=== PATIENT | female | born 1955 | race Caucasian/White ===

== ENCOUNTER 2017-12-29 06:48 | Day surgery (SDC) | payer MEDICAID ==
[~2017-12-29 06:48] MED LIST: KETOROLAC TROMETHAMINE 0.45% 4 DROP/0.4 ML DROPERETTE OS PRN
[2017-12-29] MEDS ORDERED: TOBRAMYCIN SULFATE/DEXAMETH OPH OINTMENT 3.5 GM ONE (07:06)
[2017-12-29] MEDS ORDERED: LIDOCAINE 1% INJ-PF (10 MG/ML) 30 ML SDV ONE (07:06)
[2017-12-29] MEDS ORDERED: EPINEPHRINE INJ/PF 1 MG/1 ML AMPULE ONE (07:06)
[2017-12-29] MEDS ORDERED: CHONDR SU A NA/HYALUR INTRAOC KIT (SURGICARE) ONE (07:07)
[2017-12-29] MEDS: TETRACAINE HCL 0.5% OPH SOLN 0.6 ML DROPERETTE OS PRN ×3 (07:08→07:54)
[2017-12-29] MEDS: CYCLOPENTOLATE 0.2%/PHENYLEPHRINE 1% OPH SOLN 2 ML OS PRN ×3 (07:09→07:35)
[2017-12-29] MEDS: TROPICAMIDE 1% OPH SOLN 3 ML OS PRN ×3 (07:09→07:35)
[2017-12-29] MEDS: BESIFLOXACIN HCL 0.6% OPH SUSP 5 ML BOTTLE OS PRN ×4 (07:10→08:19)
[2017-12-29] MEDS ORDERED: MIDAZOLAM 2 MG/2 ML INJ ONE (07:31)
[2017-12-29] MEDS ORDERED: FENTANYL CITRATE INJ/PF 100 MCG/2 ML AMPUL ONE (07:31)
== END 2017-12-29 09:00 | disposition home or self-care (01) ==
LOC: SC 06:48
PROVIDERS: ATTEND Ophthalmology
PROC: 08RK3JZ Replacement of Left Lens with Synthetic Substitute, Percutaneous Approach (ICD-10-PCS; principal; 2017-12-29 07:45)
DX: H25.12 Age-related nuclear cataract, left eye (principal); F17.210 Nicotine dependence, cigarettes, uncomplicated; M19.90 Unspecified osteoarthritis, unspecified site; J44.9 Chronic obstructive pulmonary disease, unspecified; I10 Essential (primary) hypertension; E78.00 Pure hypercholesterolemia, unspecified; D64.9 Anemia, unspecified; K21.9 Gastro-esophageal reflux disease without esophagitis; I49.9 Cardiac arrhythmia, unspecified; E66.9 Obesity, unspecified; G40.909 Epilepsy, unspecified, not intractable, without status epilepticus; Z79.82 Long term (current) use of aspirin; Z79.899 Other long term (current) drug therapy; Z79.51 Long term (current) use of inhaled steroids; Z88.5 Allergy status to narcotic agent; Z88.1 Allergy status to other antibiotic agents; Z68.41 Body mass index [BMI] 40.0-44.9, adult
CPT/HCPCS: 66984; V2630; J2250; J3490 ×5; J0171; J3010; 142

== ENCOUNTER 2018-01-12 07:52 | Day surgery (SDC) | payer MEDICAID ==
[2018-01-12] MEDS ORDERED: KETOROLAC TROMETHAMINE 0.45% 4 DROP/0.4 ML DROPERETTE OD PRN (08:09)
[2018-01-12] MEDS ORDERED: EPINEPHRINE INJ/PF 1 MG/1 ML AMPULE ONE (08:27)
[2018-01-12] MEDS ORDERED: CHONDR SU A NA/HYALUR INTRAOC KIT (SURGICARE) ONE (08:28)
[2018-01-12] MEDS ORDERED: TOBRAMYCIN SULFATE/DEXAMETH OPH OINTMENT 3.5 GM ONE (08:28)
[2018-01-12] MEDS ORDERED: LIDOCAINE 1% INJ-PF (10 MG/ML) 30 ML SDV ONE (08:28)
[2018-01-12] MEDS: TETRACAINE HCL 0.5% OPH SOLN 0.6 ML DROPERETTE OD PRN ×3 (08:46→09:29)
[2018-01-12] MEDS: CYCLOPENTOLATE 0.2%/PHENYLEPHRINE 1% OPH SOLN 2 ML OD PRN ×3 (08:47→09:15)
[2018-01-12] MEDS: TROPICAMIDE 1% OPH SOLN 3 ML OD PRN ×3 (08:47→09:15)
[2018-01-12] MEDS: BESIFLOXACIN HCL 0.6% OPH SUSP 5 ML BOTTLE OD PRN ×3 (08:48→09:52)
[2018-01-12] MEDS ORDERED: MIDAZOLAM 2 MG/2 ML INJ ONE (09:17)
[2018-01-12] MEDS ORDERED: ONDANSETRON HCL INJ/PF 4 MG/2 ML SDV ONE (09:18)
[2018-01-12] MEDS ORDERED: FENTANYL CITRATE INJ/PF 100 MCG/2 ML AMPUL ONE (09:18)
[2018-01-13] MEDS ORDERED: BESIFLOXACIN HCL 0.6% OPH SUSP 5 ML BOTTLE OD PRN (05:00)
[2018-01-13] MEDS ORDERED: CYCLOPENTOLATE 0.2%/PHENYLEPHRINE 1% OPH SOLN 2 ML OD PRN (05:00)
[2018-01-13] MEDS ORDERED: TROPICAMIDE 1% OPH SOLN 3 ML OD PRN (05:00)
[2018-01-13] MEDS ORDERED: KETOROLAC TROMETHAMINE 0.45% 4 DROP/0.4 ML DROPERETTE OD PRN (05:00)
[2018-01-13] MEDS ORDERED: TETRACAINE HCL 0.5% OPH SOLN 0.6 ML DROPERETTE OD PRN (05:00)
== END 2018-01-12 10:28 | disposition home or self-care (01) ==
LOC: SC 07:52
PROVIDERS: ATTEND Ophthalmology
DX: H25.11 Age-related nuclear cataract, right eye (principal); Z98.42 Cataract extraction status, left eye; I10 Essential (primary) hypertension; E78.00 Pure hypercholesterolemia, unspecified; J44.9 Chronic obstructive pulmonary disease, unspecified; M19.90 Unspecified osteoarthritis, unspecified site; K21.9 Gastro-esophageal reflux disease without esophagitis; Z79.51 Long term (current) use of inhaled steroids; I49.9 Cardiac arrhythmia, unspecified; Z79.82 Long term (current) use of aspirin
CPT/HCPCS: 66984; V2630; J2250; J3490 ×5; J0171; J2405; 142; J3010

== ENCOUNTER → 2020-02-23 | Outpatient (CLI) | payer MEDICARE, MEDICAID ==
--- NOTE | 2020-02-23 08:43 | RADIOLOGY REPORT (SQ) ---
EXAM DESCRIPTION: PELVIS AP IMAGES COMPLETED DATE/TIME: 02/23/2020 8:18 am REASON FOR STUDY: SACROILIITIS, NOT ELSEWHERE CLASSIFIED M46.1 SACROILIITIS, NOT ELSEWHERE CLASSIFI ED COMPARISON: None. NUMBER OF VIEWS: One view TECHNIQUE: AP Pelvis LIMITATIONS: None. FINDINGS: MINERALIZATION: Normal. HIPS: No acute fracture or dislocation. Marked joint space narrowing in both hips with joint space l oss and superior migration, irregular contour of the femoral heads, sclerosis, and subchondral cysts. PELVIS AND SACRUM: No acute fracture or dislocation. No worrisome bone lesions. PUBIS AND ISCHIUM: No acute fracture. LOWER LUMBAR SPINE: No significant findings as visualized. SOFT TISSUES: No findings. OTHER: No other significant finding. IMPRESSION: SEVERE DEGENERATIVE CHANGES IN BOTH HIPS. COMMENT: Pelvic fractures are often occult on plain radiographs. If strong clinical suspicion for f racture, recommend CT or MR. TECHNICAL DOCUMENTATION: JOB ID: [id number] 2010 [employer]- All Rights Reserved Reading location - IP/workstation name: [email or web address]
--- NOTE | 2020-02-23 09:40 | RADIOLOGY REPORT (SQ) ---
EXAM DESCRIPTION: KNEE LEFT 2 VIEWS IMAGES COMPLETED DATE/TIME: 02/23/2020 8:49 am REASON FOR STUDY: LT KNEE PAIN M46.1 SACROILIITIS, NOT ELSEWHERE CLASSIFIED COMPARISON: None. NUMBER OF VIEWS: Two views. TECHNIQUE: AP and lateral radiographic images acquired of the left knee. LIMITATIONS: None. FINDINGS: MINERALIZATION: Normal. BONES: No acute fracture or dislocation. No worrisome bone lesions. No significant osteophytes. JOINT: No effusion. No chondrocalcinosis. OTHER: No other significant finding. IMPRESSION: NEGATIVE STUDY OF THE LEFT KNEE. NO EXPLANATION FOR PAIN. TECHNICAL DOCUMENTATION: JOB ID: [id number] 2010 [employer]- All Rights Reserved Reading location - IP/workstation name: [email or web address]
== END ==
LOC: OD 07:32
PROVIDERS: ATTEND Nurse Practitioner Primary Care
DX: M25.562 Pain in left knee (principal); M46.1 Sacroiliitis, not elsewhere classified
CPT/HCPCS: 72170

== ENCOUNTER → 2020-03-07 | Outpatient (CLI) | payer MEDICARE, MEDICAID ==
--- NOTE | 2020-03-07 13:15 | RADIOLOGY REPORT (SQ) ---
EXAM DESCRIPTION: CHEST PA/LATERAL IMAGES COMPLETED DATE/TIME: 03/07/2020 9:51 am REASON FOR STUDY: POLYARTHRITIS, UNSPECIFIED COMPARISON: None. EXAM PARAMETERS: NUMBER OF VIEWS: two views TECHNIQUE: Digital Frontal and Lateral radiographic views of the chest acquired. RADIATION DOSE: NA LIMITATIONS: none FINDINGS: LUNGS AND PLEURA: No opacities, masses or pneumothorax. No pleural effusion. MEDIASTINUM AND HILAR STRUCTURES: No masses or contour abnormalities. HEART AND VASCULAR STRUCTURES: Heart normal size. No evidence for failure. BONES: No acute findings. HARDWARE: There appears to be a ventriculoperitoneal shunt crossing the chest. OTHER: No other significant finding. IMPRESSION: NO SIGNIFICANT RADIOGRAPHIC FINDING IN THE CHEST. TECHNICAL DOCUMENTATION: JOB ID: [id number] 2010 [employer]- All Rights Reserved Reading location - IP/workstation name: [email or web address]
== END ==
LOC: OD 09:26
PROVIDERS: ATTEND Nurse Practitioner Primary Care
DX: M46.1 Sacroiliitis, not elsewhere classified (principal); M13.0 Polyarthritis, unspecified
CPT/HCPCS: 71046